=== PATIENT | female | born 1995 | race Caucasian/White ===

== ENCOUNTER 2017-04-01 00:40 | Emergency (ER) | payer OTHER ==
[2017-04-01 00:57] VITALS: RESP 18
--- NOTE | 2017-04-01 01:08 | ED ---
Fall HPI - General Chief Complaint: Fall Stated Complaint: Fall/abd pain-18 wks pg Time Seen by Provider: 04/01/17 01:00 Source: patient, RN notes reviewed Mode of arrival: ambulatory Limitations: no limitations - History of Present Illness Initial Comments: 21-year-old female presents emergency Department with chief complaint of fall. Patient states she fell down a flight of stairs. She states she does not exactly know how on the stairs. She states she is here because she is worried about the baby. She has not felt the baby move in one hour. Patient is A0 currently 18 weeks and 4 days with her LABORATORY ANALYST Dr. Olivier. Patient denies any vaginal bleeding or vaginal discharge. She states she's having some mild cramping. She complains of mild back pain with denies any head injury no LOC. Patient denies any extremity injury denies any difficulty ambulating denies any confusion, nausea vomiting. - Related Data Home Medications Medication Instructions Recorded Confirmed Pnv,Calcium 72/Iron/Folic Acid 1 tab PO DAILY 04/01/17 04/01/17 [ Plus Tablet] Allergies Allergy/AdvReac Type Severity Reaction Status Date / Time No Known Allergies Allergy Verified 04/11/16 20:27 Review of Systems ROS Statement: Those systems with pertinent positive or pertinent negative responses have been documented in the HPI. ROS Other: All systems not noted in ROS Statement are negative. Past Medical History Past Medical History: No Reported History Additional Past Medical History / Comment(s): Subjective history: In 2009 she had a normal vaginal delivery 8 lbs. 12 oz. This is her second . She' s had good care with me since 9 weeks gestation. Blood type is O+, antibodies negative, rubella immune, RPR nonreactive, hepatitis B negative, HIV nonreactive, toxoplasmosis negative. GBS positive. History of Any Multi-Drug Resistant Organisms: None Reported Past Surgical History: No Surgical Hx Reported Past Anesthesia/Blood Transfusion Reactions: No Reported Reaction Past Psychological History: Depression Smoking Status: Heavy tobacco smoker Past Alcohol Use History: None Reported Past Drug Use History: None Reported - Past Family History Mother Family Medical History: No Reported History General Exam Limitations: no limitations General appearance: alert, in no apparent distress Head exam: Present: atraumatic, normocephalic, normal inspection Eye exam: Present: normal appearance, PERRL, EOMI. Absent: scleral icterus, conjunctival injection, periorbital swelling ENT exam: Present: normal exam, normal oropharynx, mucous membranes moist Neck exam: Present: normal inspection, full ROM. Absent: tenderness, meningismus, lymphadenopathy Respiratory exam: Present: normal lung sounds bilaterally. Absent: respiratory distress, wheezes, rales, rhonchi, stridor Cardiovascular Exam: Present: regular rate, normal rhythm, normal heart sounds. Absent: systolic murmur, diastolic murmur, rubs, gallop, clicks GI/Abdominal exam: Present: soft, normal bowel sounds. Absent: distended, tenderness, guarding, rebound, rigid Extremities exam: Present: normal inspection, full ROM, normal capillary refill. Absent: tenderness, pedal edema, joint swelling, calf tenderness Back exam: Present: full ROM, tenderness (Mild tenderness of the lower thoracic and lumbar region), paraspinal tenderness, vertebral tenderness Neurological exam: Present: alert, oriented X3, CN II-XII intact, reflexes normal. Absent: motor sensory deficit Course Vital Signs 04/01/17 00:53 Temperature 98.0 F Pulse Rate 83 Respiratory 18 Rate Blood Pressure 120/63 O2 Sat by Pulse 100 Oximetry Medical Decision Making - Medical Decision Making 21-year-old female presented for fall downstairs concern for no movement. Patient is advised that she has some tenderness over thoracic or lumbar spine that she does need x-rays the patient is refusing them at this time because it would expose the baby to radiation. Patient understands risk of not having his x-rays. Patient has no head or neck injuries noted has no tenderness. Labor and delivery did come down and do heart tones which were within normal limits. Patient again told her that she has not having any vaginal bleeding or vaginal discharge. Patient abdomen is essentially nontender there is no tenderness in the upper half over the lower half. Patient told nurse that she is not concerning more after hearing feel heart tones. Patient again refused x- rays. Disposition Clinical Impression: Fall Disposition: HOME SELF-CARE Condition: Stable Instructions: Fall Prevention (ED) Additional Instructions: Please return to the Emergency Department if symptoms worsen or any other concerns. Referrals: Pedro Queen DO [Primary Care Provider] - 1-2 days Time of Disposition: 01:47
[2017-04-01 02:07] VITALS: BP 114/57; PULSE 72; TEMP 98.3
== END 2017-04-01 02:06 | disposition home or self-care (01) ==
LOC: EC 00:40
DX: O99.89 Other specified diseases and conditions complicating pregnancy, childbirth and the puerperium (principal); F17.200 Nicotine dependence, unspecified, uncomplicated; R10.9 Unspecified abdominal pain; Z79.899 Other long term (current) drug therapy; Z3A.18 18 weeks gestation of pregnancy; W10.9XXA Fall (on) (from) unspecified stairs and steps, initial encounter
CPT/HCPCS: 99283

== ENCOUNTER 2017-08-23 05:55 | Inpatient (IN) | payer BC, OTHER ==
[2017-08-23] MEDS ORDERED: TERBUTALINE 1 MG/ML VIAL SQ PRN (06:10)
[2017-08-23] MEDS ORDERED: CARBOPROST TROMETHAMINE 250 MCG/ML 1 ML AMP IM PRN (06:10)
[2017-08-23] MEDS ORDERED: OXYTOCIN 10 UNIT/ML 1 ML VIAL IM PRN (06:10)
[2017-08-23] MEDS: LACTATED RINGERS 1,000 ML IV SCH ×3 (06:10→14:14)
[2017-08-23] MEDS ORDERED: LIDOCAINE 1% (PF) 10 MG/ML (30 ML SDV) SQ PRN (06:10)
[2017-08-23] MEDS ORDERED: METHYLERGONOVINE 0.2 MG/ML 1 ML AMP IM PRN (06:10)
[2017-08-23 06:14] VITALS: BMI 41.8
[2017-08-23] MEDS ORDERED: OXYTOCIN 20 UNITS/1000 ML NS 1,000 ML IV SCH ×2 (06:15→16:15)
[2017-08-23 06:23] LABS: Basophils % (A) 0 %; Eosinophils # (A) 0.1 k/uL (0-0.7); Eosinophils % (A) 1 %; HCT 37.1 % (34.0-46.0); HGB 12.5 gm/dL (11.4-16.0); Lymphocytes # (A) 2.2 k/uL (1.0-4.8); Lymphocytes % (A) 21 %; MCHC 33.7 g/dL (31.0-37.0); Mean Platelet Volume 8.7; Monocytes # (A) 0.5 k/uL (0-1.0); Monocytes % (A) 5 %; Neutrophils # (A) 7.6 k/uL (1.3-7.7); Neutrophils % (A) 71 %; Platelet Count 181 k/uL (150-450); RBC 4.32 m/uL (3.80-5.40); RDW 15.1 % (11.5-15.5); WBC 10.7 k/uL (3.8-10.6)
[2017-08-23] MEDS ORDERED: SODIUM CHLORIDE 0.9% 100 ML BAG ONE (13:55)
[2017-08-23] MEDS ORDERED: BUPIVACAINE (PF) 0.25% 30 ML VIAL ONE (13:55)
[2017-08-23] MEDS ORDERED: fentaNYL (PF) 50 MCG/ML 5 ML AMP ONE (13:55)
--- NOTE | 2017-08-23 16:05 | P.HPOB ---
History of Present Illness H&P Date: 08/23/17 Chief Complaint: IUP @ 39 0/7 weeks This is a 22-year-old 3 para 2001 at 39-0/7 weeks that presents to labor and delivery for elective induction of labor. She denies concerns at this time. She notes good movement and denies contractions, loss of fluid , vaginal bleeding. On blood work her blood type is O+, rubella immune, hepatitis B surface antigen negative, GBS negative, HIV negative, RPR nonreactive. Review of Systems Constitutional: Denies chills, Denies fever Genitourinary: Reports Past Medical History Past Medical History: No Reported History Additional Past Medical History / Comment(s): Subjective history: In 2009 she had a normal vaginal delivery 8 lbs. 12 oz. This is her second . She' s had good care with me since 9 weeks gestation. Blood type is O+, antibodies negative, rubella immune, RPR nonreactive, hepatitis B negative, HIV nonreactive, toxoplasmosis negative. GBS positive. History of Any Multi-Drug Resistant Organisms: None Reported Past Surgical History: No Surgical Hx Reported Past Anesthesia/Blood Transfusion Reactions: No Reported Reaction Past Psychological History: Depression Smoking Status: Heavy tobacco smoker Past Alcohol Use History: None Reported Past Drug Use History: None Reported - Past Family History Mother Family Medical History: No Reported History Medications and Allergies Home Medications Medication Instructions Recorded Confirmed Type Pnv,Calcium 72/Iron/Folic Acid 1 tab PO DAILY 04/01/17 08/23/17 History [ Plus Tablet] Allergies Allergy/AdvReac Type Severity Reaction Status Date / Time No Known Allergies Allergy Verified 04/11/16 20:27 Exam Osteopathic Statement: *. No significant issues noted on an osteopathic structural exam other than those noted in the History and Physical/Consult. - Vital Signs Vital signs: Vital Signs Temp Pulse Resp BP Pulse Ox 08/23/17 06:11 97.7 F 110 H 16 118/80 97 Intake and Output 08/23/17 08/23/17 08/23/17 06:59 14:59 22:59 Other: Weight 124.738 kg - OBG Physical Exam Abdomen: Gravid Vulva: both: normal Cervix: 2 cm dilated, 50% effaced, -3 station, soft and lateral Uterus: enlarged Results Result Diagrams: 08/23/17 06:15 Abnormal Lab Results - Last 24 Hours (Table) 08/23/17 Range/Units 06:15 WBC 10.7 H (3.8-10.6) k/uL Assessment and Plan (1) Term Narrative/Plan: Will admit to labor and delivery for Pitocin induction of labor. Anticipate and will order stadol, epidural should the pt request pain medication Current Visit: Yes Status: Acute Code(s): Z34.80 - ENCOUNTER FOR SUPRVSN OF NORMAL , UNSP TRIMESTER SNOMED Code(s): 81478189 Time with Patient: Less than 30
[2017-08-23] MEDS ORDERED: diphenhydrAMINE 50 MG/ML 1 ML VIAL IVP PRN ×2 (16:08)
[2017-08-23] MEDS ORDERED: HYDROCORTISONE 2.5% RECTAL CREAM 30 GM TUBE RECTAL PRN (16:08)
[2017-08-23] MEDS ORDERED: ZOLPIDEM 5 MG TAB PO PRN (16:08)
[2017-08-23] MEDS ORDERED: SIMETHICONE 80 MG CHEWABLE PO PRN (16:08)
[2017-08-23] MEDS ORDERED: BENZOCAINE/MENTHOL SPRAY 1 GM/SPRAY AEROSOL TOPICAL PRN (16:08)
[2017-08-23] MEDS ORDERED: diphenhydrAMINE 50 MG CAP PO PRN (16:08)
[2017-08-23] MEDS ORDERED: diphenhydrAMINE 25 MG CAP PO PRN (16:08)
[2017-08-23] MEDS ORDERED: WITCH HAZEL 1 EACH MED..PAD TOPICAL PRN (16:08)
[2017-08-23] MEDS ORDERED: ACETAMINOPHEN TAB 325 MG TAB PO PRN (16:08)
[2017-08-23] MEDS ORDERED: Acetaminophen-Codeine 300-30mg TAB PO PRN ×2 (16:08)
[2017-08-23] MEDS ORDERED: LANOLIN CREAM 5 GM TUBE TOPICAL PRN (16:08)
--- NOTE | 2017-08-23 16:59 | P.PROBDLV ---
Vaginal Delivery Note - . Vaginal Delivery Note: This is a 22-year-old 3 para 2001 that presented earlier today for elective induction of labor. Patient was started on Pitocin per protocol, eventually having amniotomy performed with clear amniotic fluid noted. she eventually progressed to 5cm, received an epidural, she progressed to complete and began pushing and had a spontaneous vaginal delivery of a viable male . Patient was noted to be complete the head was delivered atraumatically the anterior shoulder was gently delivered followed by the posterior shoulder and the body, the was then placed gently on the patient's abdomen. The cord was then doubly clamped and cut. Patient's blood type was Rh+ therefore blood was unnecessary. Mouth and nares were suctioned clear fluid was noted. had a spontaneous cry at , time of 1547, weight 8 pounds 5.5 ounces, Apgars of 9-9 at one and 5 minutes respectively. Mother and infant tolerated delivery well
[2017-08-23] MEDS ORDERED: BUPIVACAINE (PF) 0.25% 25 ML, fentaNYL (PF) 200 MCG in SODIUM CHLORIDE 0.9% 71 ML EPIDURAL ONE (17:27)
[2017-08-23] MEDS: SENNOSIDES-DOCUSATE SODIUM 1 EACH TAB PO SCH (21:50)
[2017-08-24] MEDS: IBUPROFEN 600 MG TAB PO PRN ×2 (01:24→07:20)
--- NOTE | 2017-08-24 08:30 | P.DS ---
Providers Date of admission: 08/23/17 05:55 Expected date of discharge: 08/24/17 Attending physician: Jody Olivier Primary care physician: Stated None - Discharge Diagnosis(es) (1) Term Current Visit: Yes Status: Acute Hospital Course: This is a very pleasant 22-year-old 3 para 2001 at 39 0/7 weeks that presented to labor and delivery for elective induction of labor on 08/23/2017. Patient was admitted to labor and delivery and Pitocin induction of labor was begun. Patient progressed labor amniotomy was performed at approximately 2 cm clear fluid was obtained. Patient progressed to 5 cm electing to get an epidural at that time. Patient progressed to complete and had a spontaneous vaginal delivery of a viable male infant at 1547, weight of 8 pounds 5.5 ounces , Apgars of 9 and 9 at 1 and 5 minute respectively. Patient's course has been uneventful. On day #1 she is ambulating and voiding without difficulty, lochia is moderate, she is bottle feeding. She states her pain is well controlled with oral medication we are giving her i.e. Motrin. She does wish discharge home today. Patient Condition at Discharge: Good Plan - Discharge Summary New Discharge Prescriptions: No Action Pnv,Calcium 72/Iron/Folic Acid [ Plus Tablet] 1 tab PO DAILY Discharge Medication List Pnv,Calcium 72/Iron/Folic Acid [ Plus Tablet] 1 tab PO DAILY 04/01/17 [ History] Follow up Appointment(s)/Referral(s): Jody Olivier DO [Doctor of Osteopathic Medicine] - 4 Weeks Discharge Disposition: HOME SELF-CARE
[2017-08-24 08:46] VITALS: RESP 18; TEMP 98.1
[2017-08-24] MEDS: SENNOSIDES-DOCUSATE SODIUM 1 EACH TAB PO SCH (08:46)
[2017-08-24] MEDS ORDERED: NON-FORMULARY DRUG (Pnv,Calcium 72/Iron/Folic Acid [Prenatal Plus Tablet] 1 TAB) PO SCH (09:00)
[2017-08-24 17:49] VITALS: BP 137/72; PULSE 70
== END 2017-08-24 18:24 | disposition home or self-care (01) | DRG 775 ==
LOC: 4FBP 05:55
PROVIDERS: ADMIT Obstetrics & Gynecology Obstetrics; ATTEND Obstetrics & Gynecology Obstetrics
PROC: 10907ZC Drainage of Amniotic Fluid, Therapeutic from Products of Conception, Via Natural or Artificial Opening (ICD-10-PCS; principal; 2017-08-23)
PROC: 3E0R3BZ Introduction of Anesthetic Agent into Spinal Canal, Percutaneous Approach (ICD-10-PCS; principal; 2017-08-23)
PROC: 10E0XZZ Delivery of Products of Conception, External Approach (ICD-10-PCS; principal; 2017-08-23)
PROC: 00HU33Z Insertion of Infusion Device into Spinal Canal, Percutaneous Approach (ICD-10-PCS; principal; 2017-08-23)
PROC: 3E033VJ Introduction of Other Hormone into Peripheral Vein, Percutaneous Approach (ICD-10-PCS; principal; 2017-08-23)
DX: O99.824 Streptococcus B carrier state complicating childbirth (principal); F17.200 Nicotine dependence, unspecified, uncomplicated; Z37.0 Single live birth; O99.334 Smoking (tobacco) complicating childbirth; Z3A.39 39 weeks gestation of pregnancy
CPT/HCPCS: 85025; 88307

== ENCOUNTER 2018-07-24 23:30 | Emergency (ER) | payer BC, OTHER ==
[2018-07-24 23:36] VITALS: BP 110/73; PULSE 66; RESP 18; TEMP 98.5
[2018-07-24] MEDS ORDERED: MOXIFLOXACIN HCL 0.5% DROPS 3 ML BTL LEFT EYE STA (23:59)
--- NOTE | 2018-07-25 | ED ---
Eye Problem HPI - General Source: patient, RN notes reviewed, old records reviewed Mode of arrival: ambulatory Limitations: no limitations <Renetta Jones - Last Filed: 07/25/18 17:45> <Echo Kaplan - Last Filed: 07/27/18 04:22> - General Chief complaint: Eye Problems Stated complaint: Poss pink eye Time Seen by Provider: 07/24/18 23:38 - History of Present Illness Initial comments: Patient is a 23-year-old female, presents emergency department today with chief complaint of left eye irritation. Patient reports that her stepdaughter was at her house this weekend and has been diagnosed with pink eye. 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 She has not no if she has anything within her eye or actual bacterial gingivitis to cause her pain. Patient reports that she is out of her glasses or contacts. She denies any other complaints. (Renetta Jones) - Related Data Home Medications Medication Instructions Recorded Confirmed Pnv,Calcium 72/Iron/Folic Acid 1 tab PO DAILY 04/01/17 07/24/18 [ Plus Tablet] Previous Rx's Medication Instructions Recorded Moxifloxacin [Vigamox 0.3%] 1 drop LEFT EYE Q4H #1 bottle 07/25/18 Allergies Allergy/AdvReac Type Severity Reaction Status Date / Time No Known Allergies Allergy Verified 07/24/18 23:40 Review of Systems ROS Other: All systems not noted in ROS Statement are negative. <Renetta Jones - Last Filed: 07/25/18 17:45> ROS Other: All systems not noted in ROS Statement are negative. <Echo Kaplan - Last Filed: 07/27/18 04:22> ROS Statement: Those systems with pertinent positive or pertinent negative responses have been documented in the HPI. Past Medical History Past Medical History: No Reported History Additional Past Medical History / Comment(s): Subjective history: In 2009 she had a normal vaginal delivery 8 lbs. 12 oz. This is her second . She' s had good care with me since 9 weeks gestation. Blood type is O+, antibodies negative, rubella immune, RPR nonreactive, hepatitis B negative, HIV nonreactive, toxoplasmosis negative. GBS positive. History of Any Multi-Drug Resistant Organisms: None Reported Past Surgical History: No Surgical Hx Reported Past Anesthesia/Blood Transfusion Reactions: No Reported Reaction Past Psychological History: Depression Smoking Status: Current every day smoker Past Alcohol Use History: None Reported Past Drug Use History: None Reported - Past Family History Mother Family Medical History: No Reported History <Renetta Jones - Last Filed: 07/25/18 17:45> General Exam Limitations: no limitations General appearance: alert, in no apparent distress Head exam: Present: atraumatic, normocephalic, normal inspection Eye exam: Present: normal appearance, PERRL, EOMI, conjunctival injection (Left eye conjunctival injection. No significant drainage at this time.), periorbital swelling, other (No evidence retained foreign body.). Absent: scleral icterus ENT exam: Present: normal exam, mucous membranes moist Neck exam: Present: normal inspection. Absent: tenderness, meningismus, lymphadenopathy Respiratory exam: Present: normal lung sounds bilaterally. Absent: respiratory distress, wheezes, rales, rhonchi, stridor Cardiovascular Exam: Present: regular rate, normal rhythm, normal heart sounds. Absent: systolic murmur, diastolic murmur, rubs, gallop, clicks GI/Abdominal exam: Present: soft, normal bowel sounds. Absent: distended, tenderness, guarding, rebound, rigid Extremities exam: Present: normal inspection, full ROM, normal capillary refill. Absent: tenderness, pedal edema, joint swelling, calf tenderness Back exam: Present: normal inspection <Renetta Jones - Last Filed: 07/25/18 17:45> <Echo Kaplan P - Last Filed: 07/27/18 04:22> - General Exam Comments Initial Comments: 23-year-old female. Alert and oriented. Patient appears in no significant distress. (Renetta Jones) Vital Signs 07/24/18 23:33 Temperature 98.5 F Pulse Rate 66 Respiratory 18 Rate Blood Pressure 110/73 O2 Sat by Pulse 99 Oximetry Medical Decision Making <Renetta Jones - Last Filed: 07/25/18 17:45> <Echo Kaplan P - Last Filed: 07/27/18 04:22> - Medical Decision Making This Patient is a 23-year-old female, presents return today with left eye irritation times one day. Daughter was recently diagnosed with conjunctivitis. She also is concerned she may have a piece of foreign body within the eye due to working factory. At this time foreseen eye exam was performed. There is just diffuse uptake. No evidence of corneal abrasion or retained foreign body. Patient has no pain with extraocular movements. She does have some minor swelling around the periorbital area. No erythema. Low suspicion for periorbital cellulitis. Patient does report significant drainage from the left eye. We'll treat the Patient was sent for conjunctivitis. Discussed it could be possibly viral. I discussed that she should follow-up with ophthalmology. Patient agrees to treatment plan will comply. (Renetta Jones) I was available for consultation in the emergency department. The history and physical exam were done by the midlevel provider. I was consulted for this patient's care. I reviewed the case with the midlevel provider and based on their presentation of the patient, I agree with the assessment, medical decision making and plan of care as documented. Chart was dictated using [employer] dictation software. Attempts were made to correct any dictation errors however some typographical errors may persist. ( Echo Kaplan) Disposition Is patient prescribed a controlled substance at d/c from ED?: No <Renetta Jones - Last Filed: 07/25/18 17:45> <Echo Kaplan - Last Filed: 07/27/18 04:22> Clinical Impression: Conjunctivitis, left eye Disposition: HOME SELF-CARE Condition: Good Instructions: Conjunctivitis (ED) Additional Instructions: She can apply the eye ointment drops 1-2 drops every 4 hours the next 2 days. Follow up with ophthalmology if symptoms persist. Or return to emergency department if any alarming signs or symptoms occur. Prescriptions: Moxifloxacin [Vigamox 0.3%] 1 drop LEFT EYE Q4H #1 bottle Referrals: Pedro Queen DO [Primary Care Provider] - 1-2 days
== END 2018-07-25 00:25 | disposition home or self-care (01) ==
LOC: EC 23:30
DX: H10.9 Unspecified conjunctivitis (principal); F17.200 Nicotine dependence, unspecified, uncomplicated
CPT/HCPCS: 99283

== ENCOUNTER 2018-12-12 23:43 | Emergency (ER) | payer BC, OTHER ==
[2018-12-12 23:50] VITALS: BP 112/70; PULSE 85; RESP 18; TEMP 98.6
--- NOTE | 2018-12-13 01:09 | ED ---
General Adult HPI - General Chief complaint: Extremity Injury, Upper Stated complaint: nail infection Time Seen by Provider: 12/12/18 23:52 Source: patient, RN notes reviewed Mode of arrival: ambulatory Limitations: no limitations - History of Present Illness Initial comments: 23-year-old female presents to the emergency department for a chief complaint of painful left index finger. States that she got her nails done 2 weeks ago and since then it has been red and swollen. States that she decided to get it looked at today. Denies any spreading or streaking redness up the finger. Denies any pain with bending the finger. States she feels pressure under her nail. Denies fevers or chills.Patient has no other complaints at this time including shortness of breath, chest pain, abdominal pain, nausea or vomiting, headache, or visual changes. - Related Data Home Medications Medication Instructions Recorded Confirmed Pnv,Calcium 72/Iron/Folic Acid 1 tab PO DAILY 04/01/17 07/24/18 [ Plus Tablet] Previous Rx's Medication Instructions Recorded Moxifloxacin [Vigamox 0.3%] 1 drop LEFT EYE Q4H #1 bottle 07/25/18 Allergies Allergy/AdvReac Type Severity Reaction Status Date / Time No Known Allergies Allergy Verified 07/24/18 23:40 Review of Systems ROS Statement: Those systems with pertinent positive or pertinent negative responses have been documented in the HPI. ROS Other: All systems not noted in ROS Statement are negative. Past Medical History Past Medical History: No Reported History Additional Past Medical History / Comment(s): Subjective history: In 2009 she had a normal vaginal delivery 8 lbs. 12 oz. This is her second . She's had good care with me since 9 weeks gestation. Blood type is O+, antibodies negative, rubella immune, RPR nonreactive, hepatitis B negative, HIV nonreactive, toxoplasmosis negative. GBS positive. History of Any Multi-Drug Resistant Organisms: None Reported Past Surgical History: No Surgical Hx Reported Past Anesthesia/Blood Transfusion Reactions: No Reported Reaction Past Psychological History: Depression Smoking Status: Current every day smoker Past Alcohol Use History: None Reported Past Drug Use History: None Reported - Past Family History Mother Family Medical History: No Reported History General Exam Limitations: no limitations General appearance: alert, in no apparent distress Head exam: Present: atraumatic, normocephalic, normal inspection Eye exam: Present: normal appearance, PERRL, EOMI. Absent: scleral icterus, conjunctival injection, periorbital swelling ENT exam: Present: normal exam, mucous membranes moist Neck exam: Present: normal inspection, full ROM. Absent: tenderness, meningismus, lymphadenopathy Respiratory exam: Present: normal lung sounds bilaterally. Absent: respiratory distress, wheezes, rales, rhonchi, stridor Cardiovascular Exam: Present: regular rate, normal rhythm, normal heart sounds. Absent: systolic murmur, diastolic murmur, rubs, gallop, clicks Extremities exam: Present: full ROM (Full range motion of the left index finger), tenderness (Tenderness noted to the proximal nail bed of the left second finger with mild erythema, no significant fluctuance.), normal capillary refill (Capillary refill less than 2 seconds, radial pulse 2+ in the left upper extremity.), other (Patient does have what appears to be pus noted under the proximal nailbed as well.). Absent: pedal edema, joint swelling, calf tenderness Neurological exam: Present: alert, oriented X3, CN II-XII intact Psychiatric exam: Present: normal affect, normal mood Course Vital Signs 12/12/18 23:47 Temperature 98.6 F Pulse Rate 85 Respiratory 18 Rate Blood Pressure 112/70 O2 Sat by Pulse 98 Oximetry Procedures - Incision & Drainage Consent Obtained: verbal consent Site: other (Left second digit) Size (cm): 1 Scalpel Used: #11 (18-gauge needle used, followed by cautery tool) I&D Drainage Obtained: Pus Patient Tolerated Procedure: well, no complications Medical Decision Making - Medical Decision Making 23-year-old female currently presents to the emergency department for a chief complaint of left index finger pain 2 weeks after getting her nails done. On exam patient has pus under the proximal nail bed. Erythema noted to the proximal nail fold as well. No significant fluctuance. I did clean the area with alcohol. I then attempted to incise and drain the proximal nail fold with an 18-gauge needle, no pus was drained. I then used a cautery tool to trephinate the left second nail. This did allow pus to be expelled. Patient states pressure is much better at this time. As patient is antibiotics are not recommended as I was able to drain the abscess. However I did discuss warm soaks as well as following up with primary care. Discussed returning here if symptoms are not resolving Disposition Clinical Impression: Paronychia of finger of left hand Disposition: HOME SELF-CARE Condition: Good Instructions (If sedation given, give patient instructions): Paronychia (ED), Warm Compress or Soak (ED) Additional Instructions: Please do warm soaks at least 2 times daily. Please monitor for worsening symptoms as spreading or streaking redness and return if his occur. Follow-up with primary care in 1-2 days otherwise. Is patient prescribed a controlled substance at d/c from ED?: No Referrals: Pedro Queen DO [Primary Care Provider] - 1-2 days Time of Disposition: 01:08
== END 2018-12-13 01:33 | disposition home or self-care (01) ==
LOC: EC 12-13 00:16
DX: L03.012 Cellulitis of left finger (principal); F17.200 Nicotine dependence, unspecified, uncomplicated
CPT/HCPCS: 10060; 99283

== ENCOUNTER 2019-07-15 05:58 | Inpatient (IN) | payer BC, OTHER ==
[2019-07-15] MEDS ORDERED: CARBOPROST TROMETHAMINE 250 MCG/ML 1 ML AMP IM PRN (06:16)
[2019-07-15] MEDS ORDERED: OXYTOCIN 10 UNIT/ML 1 ML VIAL IM PRN (06:16)
[2019-07-15] MEDS ORDERED: LIDOCAINE 0.5% (PF) 5 MG/ML (50 ML SDV) SQ PRN (06:16)
[2019-07-15] MEDS ORDERED: TERBUTALINE 1 MG/ML VIAL SQ PRN (06:16)
[2019-07-15] MEDS ORDERED: METHYLERGONOVINE 0.2 MG/ML 1 ML AMP IM PRN (06:16)
[2019-07-15] MEDS: LACTATED RINGERS 1,000 ML IV SCH ×4 (06:29→15:43)
[2019-07-15] MEDS ORDERED: OXYTOCIN 30 UNITS/500 ML NS 30 UNIT in SALINE 1 500ML.BAG IV SCH (06:30)
[2019-07-15 06:45] LABS: Basophils % (A) 0 %; Eosinophils # (A) 0.1 k/uL (0-0.7); Eosinophils % (A) 1 %; HCT 35.4 % (34.0-46.0); HGB 12.2 gm/dL (11.4-16.0); Lymphocytes # (A) 2.4 k/uL (1.0-4.8); Lymphocytes % (A) 23 %; MCH 29.2 pg (25.0-35.0); MCHC 34.4 g/dL (31.0-37.0); MCV 84.9 fL (80.0-100.0); Mean Platelet Volume 8.5; Monocytes # (A) 0.6 k/uL (0-1.0); Monocytes % (A) 5 %; Neutrophils # (A) 7.1 k/uL (1.3-7.7); Neutrophils % (A) 69 %; Platelet Count 216 k/uL (150-450); RBC 4.17 m/uL (3.80-5.40); RDW 14.1 % (11.5-15.5); WBC 10.4 k/uL (3.8-10.6)
--- NOTE | 2019-07-15 08:16 | P.HPOB ---
History of Present Illness H&P Date: 07/15/19 Chief Complaint: IUP at 39 and 0/7 weeks This is a pleasant 24-year-old 4 para 3003 at 39-0/7 weeks that presents to labor and delivery for elective induction of labor. Patient has been receiving routine care with myself and it has been essentially uncompli cated. This morning patient notes good movement she denies contractions vaginal bleeding or loss of fluid. Next On blood work she has a blood type of O+, rubella immune, RPR nonreac tive, hepatitis B surface antigen negative, HIV negative, group beta strep negative. Review of Systems Constitutional: Denies chills, Denies fatigue, Denies fever Ears, nose, mouth and throat: Denies headache Cardiovascular: Reports leg edema Respiratory: Denies dyspnea Gastrointestinal: Denies constipation, Denies diarrhea, Denies nausea, Denies vomiting Genitourinary: Reports Past Medical History Past Medical History: No Reported History Additional Past Medical History / Comment(s): Subjective history: In 2009 she had a normal vaginal delivery 8 lbs. 12 oz. This is her second . She's had good care with me since 9 weeks gestation. Blood type is O+, antibodies negative, rubella immune, RPR nonreactive, hepatitis B negative, HIV nonreactive, toxoplasmosis negative. GBS positive. History of Any Multi-Drug Resistant Organisms: None Reported Past Surgical History: No Surgical Hx Reported Past Anesthesia/Blood Transfusion Reactions: No Reported Reaction Past Psychological History: No Psychological Hx Reported, Depression Smoking Status: Current every day smoker Past Alcohol Use History: None Reported Past Drug Use History: None Reported - Past Family History Mother Family Medical History: No Reported History Medications and Allergies Home Medications Medication Instructions Recorded Confirmed Type Pnv,Calcium 72/Iron/Folic Acid 1 tab PO DAILY 04/01/17 07/15/19 History [ Plus Tablet] Allergies Allergy/AdvReac Type Severity Reaction Status Date / Time Penicillins Allergy Rash/Hives Verified 07/15/19 06:13 Exam Osteopathic Statement: *. No significant issues noted on an osteopathic structural exam other than those noted in the History and Physical/Consult. Vital Signs Temp Pulse Resp BP 07/15/19 07:14 98.2 F 74 18 122/69 Intake and Output 07/14/19 07/15/19 07/15/19 22:59 06:59 14:59 Other: Weight 117.934 kg 117.934 kg Targeted physical exam is performed in general this is a well-nourished well- developed female in no acute distress, breathing is noted to nonlabored her heart has regular rate and rhythm, abdomen is gravid and appropriate for ges tational age, heart tones returned be category 1 and she is evelyn regularly. On cervical exam she is 4/50/-3 amniotomy is performed and clear fluid is obtained. Results Result Diagrams: 07/15/19 06:25 Assessment and Plan (1) Term Current Visit: No Status: Acute Code(s): Z34.80 - ENCOUNTER FOR SUPRVSN OF NORMAL , UNSP TRIMESTER SNOMED Code(s): 32021572 Plan: Patient is admitted to labor for Pitocin induction of labor. Pitocin induction is begun per hospital protocol, patient does desire epidural, anesthesia will be notified. Anticipate spontaneous vaginal delivery later today.
[2019-07-15] MEDS ORDERED: ROPIVACAINE 5MG/ML 20ML VIAL ONE (10:26)
[2019-07-15] MEDS ORDERED: fentaNYL (PF) 50 MCG/ML 5 ML AMP ONE (10:26)
[2019-07-15] MEDS ORDERED: SODIUM CHLORIDE 0.9% 100 ML BAG ONE (10:26)
[2019-07-15] MEDS ORDERED: diphenhydrAMINE 50 MG CAP PO PRN (11:31)
[2019-07-15] MEDS ORDERED: HYDROcodone/APAP 5-325MG 1 EACH TAB PO PRN (11:31)
[2019-07-15] MEDS ORDERED: LANOLIN CREAM 5 GM TUBE TOPICAL PRN (11:31)
[2019-07-15] MEDS ORDERED: WITCH HAZEL 1 EACH MED..PAD TOPICAL PRN (11:31)
[2019-07-15] MEDS ORDERED: ZOLPIDEM 5 MG TAB PO PRN (11:31)
[2019-07-15] MEDS ORDERED: SIMETHICONE 80 MG CHEWABLE PO PRN (11:31)
[2019-07-15] MEDS ORDERED: diphenhydrAMINE 50 MG/ML 1 ML VIAL IVP PRN ×2 (11:31)
[2019-07-15] MEDS ORDERED: BENZOCAINE/MENTHOL SPRAY 1 GM/SPRAY AEROSOL TOPICAL PRN (11:31)
[2019-07-15] MEDS ORDERED: HYDROCORTISONE 2.5% RECTAL CREAM 30 GM TUBE RECTAL PRN (11:31)
[2019-07-15] MEDS ORDERED: diphenhydrAMINE 25 MG CAP PO PRN (11:31)
--- NOTE | 2019-07-15 12:02 | P.PROBDLV ---
Vaginal Delivery Note - . Vaginal Delivery Note: This is a 24-year-old 4 para 3003 at 39-0/7 weeks that presented to labor and delivery for elective induction of labor. Patient was receiving routine care with myself and this has been uncomplicated. Patient was admitted to labor and delivery and Pitocin induction of labor was begun per hospital protocol. Patient did become uncomfortable requesting epidural placement which was placed by the anesthesia Department without difficulty. Patient progressed to complete began pushing and had a normal spontaneous vaginal delivery of a viable female at 1141 with a weight of 8 lbs. 2 oz. After a two-minute delay the interval cord was doubly clamped and cut and the placenta was delivered spontaneously intact with a three-vessel cord. On inspection the patient's vaginal vault a small first-degree laceration was noted at the posterior fourchette this was repaired in usual fashion with 3-0 repeat. The uterus was noted to be quite boggy therefore Methergine was given at this time. Uterus was noted be firm and below the umbilicus after administration. The bladder was emptied for approximately 150 mL of clear yellow urine prior to Methergine being given. EBL 400cc Patient and tolerated delivery well and are resting comfortably.
[2019-07-15] MEDS: OXYTOCIN 20 UNITS/1000 ML NS 1,000 ML IV SCH ×2 (12:16→14:02)
[2019-07-15] MEDS: IBUPROFEN 600 MG TAB PO PRN (15:51)
[2019-07-15] MEDS: SENNOSIDES-DOCUSATE SODIUM 1 EACH TAB PO SCH (20:35)
[2019-07-15] MEDS: ACETAMINOPHEN TAB 325 MG TAB PO PRN (20:35)
[2019-07-15] MEDS ORDERED: DIPH,PERTUS(ACELL)TETVAC-LF 0.5 ML VIAL IM ONE (21:02)
[2019-07-16] MEDS: IBUPROFEN 600 MG TAB PO PRN (04:06)
[2019-07-16 07:26] LABS: Basophils % (A) 0 %; Eosinophils # (A) 0.1 k/uL (0-0.7); Eosinophils % (A) 1 %; HCT 30.3 % (34.0-46.0); HGB 10.4 gm/dL (11.4-16.0); Lymphocytes # (A) 2.4 k/uL (1.0-4.8); Lymphocytes % (A) 26 %; MCH 29.5 pg (25.0-35.0); MCHC 34.3 g/dL (31.0-37.0); Mean Platelet Volume 7.8; Monocytes # (A) 0.4 k/uL (0-1.0); Monocytes % (A) 5 %; Neutrophils % (A) 66 %; Platelet Count 191 k/uL (150-450); RBC 3.52 m/uL (3.80-5.40); RDW 14.2 % (11.5-15.5); WBC 9.1 k/uL (3.8-10.6)
[2019-07-16] MEDS: SENNOSIDES-DOCUSATE SODIUM 1 EACH TAB PO SCH (08:30)
[2019-07-16] MEDS: ACETAMINOPHEN TAB 325 MG TAB PO PRN (08:30)
--- NOTE | 2019-07-16 08:43 | P.DS ---
Providers Date of admission: 07/15/19 05:58 Expected date of discharge: 07/16/19 Attending physician: Jody Olivier Primary care physician: Pedro Queen - Discharge Diagnosis(es) (1) Term Current Visit: No Status: Acute (2) Status post vaginal delivery Current Visit: Yes Status: Acute Hospital Course: This pleasant 24-year-old 4 para 3003 at 39-0/7 weeks presented to labor and delivery yesterday 07/15/19 for elective induction of labor. Patient had been receiving routine care that was uncomplicated. Patient was admitted Pitocin was started per hospital protocol. Patient underwent amniotomy clear fluid was obtained. Patient became uncomfortable requesting epidural placement. Epidural was placed without difficulty by the anesthesia department. She progressed to complete began pushing and had a normal spontaneous vaginal delivery of a viable female at 1141, weight of 8 lbs. 2 oz. Patient did sustain a hemorrhage, which resolved after 1 dose of Methergine. Hemoglobin noted to go from 12 on admission to 10. She did sustain a first- degree vaginal laceration that was repaired with a [id number] suture of 3-0 Rapide. Patient's course is uneventful. She is a really and voiding without difficulty on this day #1. She is tolerating a regular diet without nausea or vomiting. She states her pain is well-controlled. She would like discharge home at 24 hours. Patient Condition at Discharge: Good Plan - Discharge Summary New Discharge Prescriptions: No Action Pnv,Calcium 72/Iron/Folic Acid [ Plus Tablet] 1 tab PO DAILY Discharge Medication List Pnv,Calcium 72/Iron/Folic Acid [ Plus Tablet] 1 tab PO DAILY 04/01/17 [History] Follow up Appointment(s)/Referral(s): Jody Olivier DO [Doctor of Osteopathic Medicine] - 4 Weeks Patient Instructions/Handouts: Vaginal Delivery (DC), Vaginal Delivery (GEN) Activity/Diet/Wound Care/Special Instructions: No tub baths or intercourse until 6 weeks . Patient may use [id number] ibuprofen 600 mg every 6 hours for pain. Discharge Disposition: HOME SELF-CARE
[2019-07-16 13:40] VITALS: BP 128/58; PULSE 71; RESP 16; TEMP 98
== END 2019-07-16 13:00 | disposition home or self-care (01) | DRG 807 ==
LOC: 4FBP 05:58
PROVIDERS: ADMIT Obstetrics & Gynecology Obstetrics; ATTEND Obstetrics & Gynecology Obstetrics
PROC: 10E0XZZ Delivery of Products of Conception, External Approach (ICD-10-PCS; principal; 2019-07-15)
PROC: 3E033VJ Introduction of Other Hormone into Peripheral Vein, Percutaneous Approach (ICD-10-PCS; 2019-07-15)
PROC: 00HU33Z Insertion of Infusion Device into Spinal Canal, Percutaneous Approach (ICD-10-PCS; 2019-07-15)
PROC: 3E0R3BZ Introduction of Anesthetic Agent into Spinal Canal, Percutaneous Approach (ICD-10-PCS; 2019-07-15)
PROC: 0HQ9XZZ Repair Perineum Skin, External Approach (ICD-10-PCS; 2019-07-15)
DX: O99.824 Streptococcus B carrier state complicating childbirth (principal); Z37.0 Single live birth; O99.334 Smoking (tobacco) complicating childbirth; F17.200 Nicotine dependence, unspecified, uncomplicated; O71.4 Obstetric high vaginal laceration alone; O72.1 Other immediate postpartum hemorrhage; Z3A.39 39 weeks gestation of pregnancy; Z88.0 Allergy status to penicillin
CPT/HCPCS: 85025; 86850; 86900; 86901; 90471; 90715

== ENCOUNTER 2020-09-29 03:14 | Emergency (ER) | payer BC ==
[2020-09-29 03:22] VITALS: TEMP 97.7
[2020-09-29] MEDS ORDERED: SODIUM CHLORIDE 0.9% 500 ML 500 ML IV STA (04:09)
[2020-09-29 04:35] LABS: Basophils % (A) 0 %; Eosinophils # (A) 0.2 k/uL (0-0.7); Eosinophils % (A) 2 %; HCT 35.9 % (34.0-46.0); HGB 12.5 gm/dL (11.4-16.0); Lymphocytes # (A) 2.5 k/uL (1.0-4.8); Lymphocytes % (A) 25 %; MCH 29.1 pg (25.0-35.0); MCHC 34.9 g/dL (31.0-37.0); MCV 83.5 fL (80.0-100.0); Mean Platelet Volume 7.5; Monocytes # (A) 0.3 k/uL (0-1.0); Monocytes % (A) 3 %; Neutrophils # (A) 6.9 k/uL (1.3-7.7); Neutrophils % (A) 69 %; Platelet Count 197 k/uL (150-450); RDW 14.1 % (11.5-15.5)
--- NOTE | 2020-09-29 06:36 | ED ---
Female Urogenital HPI - General Chief complaint: Vaginal Bleeding Stated complaint: 17 wks preg, bleeding Time Seen by Provider: 09/29/20 03:33 Source: patient Mode of arrival: ambulatory Limitations: no limitations - History of Present Illness MD Complaint: vaginal bleeding, pelvic pain -: hour(s) Location: suprapubic, LLQ, RLQ Radiation: non-radiating Severity: moderate Quality: cramping Consistency: intermittent Improves with: none Worsens with: none Patient : Yes Number of weeks : 17 Associated Symptoms: vaginal bleeding, abdominal pain - Related Data Home Medications Medication Instructions Recorded Confirmed Pnv,Calcium 72/Iron/Folic Acid 1 tab PO DAILY 04/01/17 09/29/20 [ Plus Tablet] Amoxicillin 500 mg PO TID 09/29/20 09/29/20 Sertraline [Zoloft] 50 mg PO DAILY 09/29/20 09/29/20 Allergies Allergy/AdvReac Type Severity Reaction Status Date / Time Penicillins Allergy Rash/Hives Verified 09/29/20 07:56 Review of Systems ROS Statement: Those systems with pertinent positive or pertinent negative responses have been documented in the HPI. ROS Other: All systems not noted in ROS Statement are negative. Constitutional: Denies: fever, chills Respiratory: Denies: cough, dyspnea Cardiovascular: Denies: chest pain, palpitations, edema, syncope Gastrointestinal: Reports: as per HPI, abdominal pain. Denies: nausea, vomiting, diarrhea, constipation Genitourinary: Reports: other (Vaginal bleeding). Denies: dysuria, hematuria Musculoskeletal: Denies: back pain Skin: Denies: rash Neurological: Denies: headache, weakness, numbness Past Medical History Past Medical History: No Reported History Additional Past Medical History / Comment(s): Subjective history: In 2009 she had a normal vaginal delivery 8 lbs. 12 oz. This is her second . She's had good care with me since 9 weeks gestation. Blood type is O+, antibodies negative, rubella immune, RPR nonreactive, hepatitis B negative, HIV nonreactive, toxoplasmosis negative. GBS positive. History of Any Multi-Drug Resistant Organisms: None Reported Past Surgical History: No Surgical Hx Reported Past Anesthesia/Blood Transfusion Reactions: No Reported Reaction Past Psychological History: No Psychological Hx Reported, Depression Smoking Status: Current every day smoker Past Alcohol Use History: None Reported Past Drug Use History: None Reported - Past Family History Mother Family Medical History: No Reported History General Exam Limitations: no limitations General appearance: alert, in no apparent distress Head exam: Present: atraumatic, normocephalic Eye exam: Present: normal appearance. Absent: scleral icterus, conjunctival injection ENT exam: Present: normal oropharynx Neck exam: Present: normal inspection Respiratory exam: Present: normal lung sounds bilaterally. Absent: respiratory distress, wheezes, rales, rhonchi, stridor Cardiovascular Exam: Present: regular rate, normal rhythm, normal heart sounds. Absent: systolic murmur, diastolic murmur, rubs, gallop GI/Abdominal exam: Present: soft. Absent: distended, tenderness, guarding, rebound, rigid, mass Extremities exam: Present: normal inspection, normal capillary refill. Absent: pedal edema, calf tenderness Back exam: Present: normal inspection. Absent: CVA tenderness (R), CVA tenderness (L) Neurological exam: Present: alert Skin exam: Present: warm, dry, intact, normal color. Absent: rash Course Vital Signs 09/29/20 09/29/20 09/29/20 03:17 05:35 07:21 Temperature 97.7 F Pulse Rate 83 74 66 Respiratory 18 16 16 Rate Blood Pressure 116/78 111/64 106/66 O2 Sat by Pulse 100 97 95 Oximetry 09/29/20 08:06 Temperature Pulse Rate 72 Respiratory 18 Rate Blood Pressure 103/69 O2 Sat by Pulse 100 Oximetry Medical Decision Making - Medical Decision Making This patient is a 25-year-old woman with cramping and vaginal bleeding that had come on tonight. Her symptoms did resolve in the emergency department. 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 - Lab Data Result diagrams: 09/29/20 04:20 Lab Results 09/29/20 09/29/20 09/29/20 Range/Units 04:20 04:20 04:20 WBC 10.0 (3.8-10.6) k/uL RBC 4.30 (3.80-5.40) m/uL Hgb 12.5 (11.4-16.0) gm/dL Hct 35.9 (34.0-46.0) % MCV 83.5 (80.0-100.0) fL MCH 29.1 (25.0-35.0) pg MCHC 34.9 (31.0-37.0) g/dL RDW 14.1 (11.5-15.5) % Plt Count 197 (150-450) k/uL MPV 7.5 Neutrophils % 69 % Lymphocytes % 25 % Monocytes % 3 % Eosinophils % 2 % Basophils % 0 % Neutrophils # 6.9 (1.3-7.7) k/uL Lymphocytes # 2.5 (1.0-4.8) k/uL Monocytes # 0.3 (0-1.0) k/uL Eosinophils # 0.2 (0-0.7) k/uL Basophils # 0.0 (0-0.2) k/uL HCG, Quant 7742.9 mIU/mL Blood Type O Positive Blood Type Recheck O Pos Bld Type Recheck Status No Disposition Clinical Impression: Threatened Disposition: HOME SELF-CARE Condition: Good Instructions (If sedation given, give patient instructions): Threatened Miscarriage (ED) Is patient prescribed a controlled substance at d/c from ED?: No Referrals: Pedro Queen DO [Primary Care Provider] - 1-2 days Jody Olivier DO [Doctor of Osteopathic Medicine] - 1-2 days
--- NOTE | 2020-09-29 07:28 | US ---
EXAMINATION TYPE: US OB >= 14 wk fetus DATE OF EXAM: 09/29/2020 COMPARISON: None CLINICAL HISTORY: vaginal bleeding TECHNIQUE: Transabdominal (TA) GESTATIONAL AGE / DATING Physician Established: (17 weeks/3 days) EDC: 03/06/2021 Dates by Current Scan: (17 weeks/5 days) EDC: 03/04/2021 Beta HCG (if available): Not available at this time SURVEY IUP: Single PLACENTA: Anterior PREVIA: No Previa OZ: 13.0 cm Normal CERVICAL LENGTH (transabdominal: norm > 3.0cm): 4.0 cm BIOMETRY PRESENTATION: Vertex LIE: Longitudinal BPD: 3.8 cm 17 weeks / 4 days HC: 14.4 cm 17 weeks / 4 days AC: 12.5 cm 18 weeks / 1 days FL: 2.5 cm 17 weeks / 5 days ESTIMATED WEIGHT IN GRAMS: 213.5 grams ESTIMATED WEIGHT IN LBS/OZ: 0 lbs. 8 oz. WEIGHT PERCENTAGE BASED ON ESTABLISHED DATES: 73% HC/AC: 1.2 Normal FL/AC: 20.2 Normal HEART RATE: 143 bpm RHYTHM: Normal Viable IUP, measurements consistent with dates. Single live intrauterine gestation. No cervical thinning. No placenta previa. Calculated amniotic flu id index within normal limits. Abnormal cephalad presentation currently. biometry measurements congruent and thought within normal limits. IMPRESSION: As above.
[2020-09-29 08:07] VITALS: BP 103/69; PULSE 72; RESP 18
== END 2020-09-29 09:31 | disposition home or self-care (01) ==
LOC: EC 03:14
DX: O20.0 Threatened abortion (principal); O99.332 Smoking (tobacco) complicating pregnancy, second trimester; F17.200 Nicotine dependence, unspecified, uncomplicated; O99.342 Other mental disorders complicating pregnancy, second trimester; F32.9 Major depressive disorder, single episode, unspecified; Z3A.17 17 weeks gestation of pregnancy; Z88.0 Allergy status to penicillin
CPT/HCPCS: 36415; 76805; 84702; 85025; 86900; 86901; 99284

== ENCOUNTER 2021-02-15 06:00 | Inpatient (IN) | payer BC ==
[2021-02-15] MEDS ORDERED: OXYTOCIN 10 UNIT/ML 1 ML VIAL IM PRN (06:14)
[2021-02-15] MEDS ORDERED: LIDOCAINE 0.5% (PF) 5 MG/ML (50 ML SDV) SQ PRN (06:14)
[2021-02-15] MEDS ORDERED: TERBUTALINE 1 MG/ML VIAL SQ PRN (06:14)
[2021-02-15] MEDS ORDERED: CARBOPROST TROMETHAMINE 250 MCG/ML 1 ML AMP IM PRN (06:14)
[2021-02-15] MEDS ORDERED: METHYLERGONOVINE 0.2 MG/ML 1 ML AMP IM PRN (06:14)
[2021-02-15] MEDS ORDERED: OXYTOCIN 30 UNITS/500 ML NS 30 UNIT in SALINE 1 500ML.BAG IV SCH ×2 (06:15→13:45)
[2021-02-15] MEDS ORDERED: LACTATED RINGERS 1,000 ML IV SCH (06:15)
[2021-02-15] MEDS: LACTATED RINGERS 1,000 ML IV SCH ×3 (06:25→11:46)
[2021-02-15 06:28] LABS: Basophils % (A) 0 %; Eosinophils # (A) 0.1 k/uL (0-0.7); Eosinophils % (A) 1 %; HCT 35.2 % (34.0-46.0); HGB 12.3 gm/dL (11.4-16.0); Lymphocytes # (A) 2.6 k/uL (1.0-4.8); Lymphocytes % (A) 22 %; MCH 28.2 pg (25.0-35.0); MCHC 34.9 g/dL (31.0-37.0); MCV 80.7 fL (80.0-100.0); Mean Platelet Volume 8.1; Monocytes # (A) 0.6 k/uL (0-1.0); Monocytes % (A) 5 %; Neutrophils # (A) 8.5 k/uL (1.3-7.7); Neutrophils % (A) 71 %; Platelet Count 238 k/uL (150-450); RBC 4.36 m/uL (3.80-5.40); RDW 14.7 % (11.5-15.5); WBC 12.1 k/uL (3.8-10.6)
[2021-02-15] MEDS ORDERED: ROPIVACAINE 5MG/ML 20ML VIAL ONE (09:34)
[2021-02-15] MEDS ORDERED: SODIUM CHLORIDE 0.9% 100 ML BAG ONE (09:34)
[2021-02-15] MEDS ORDERED: fentaNYL (PF) 50 MCG/ML 5 ML AMP ONE (09:34)
[2021-02-15] MEDS ORDERED: miSOPROStoL 200 MCG TAB RECTAL STA (13:25)
[2021-02-15] MEDS ORDERED: diphenhydrAMINE 25 MG CAP PO PRN (13:31)
[2021-02-15] MEDS ORDERED: ZOLPIDEM 5 MG TAB PO PRN (13:31)
[2021-02-15] MEDS ORDERED: diphenhydrAMINE 50 MG/ML 1 ML VIAL IVP PRN ×2 (13:31)
[2021-02-15] MEDS ORDERED: SIMETHICONE 80 MG CHEWABLE PO PRN (13:31)
[2021-02-15] MEDS ORDERED: BENZOCAINE/MENTHOL SPRAY 1 GM/SPRAY AEROSOL TOPICAL PRN (13:31)
[2021-02-15] MEDS ORDERED: LANOLIN CREAM 5 GM TUBE TOPICAL PRN (13:31)
[2021-02-15] MEDS ORDERED: HYDROCORTISONE 2.5% RECTAL CREAM 30 GM TUBE RECTAL PRN (13:31)
[2021-02-15] MEDS ORDERED: diphenhydrAMINE 50 MG CAP PO PRN (13:31)
--- NOTE | 2021-02-15 13:33 | P.PROBDLV ---
Vaginal Delivery Note - . Vaginal Delivery Note: This is a 25-year-old 004 at 39-4/7 weeks that presented to labor and delivery for elective induction of labor. Patient was admitted and Pitocin induction of labor was begun. Patient progressed through labor eventually coming uncomfortable and requesting epidural placement. Patient quickly progressed to complete began pushing and had a normal spontaneous vaginal delivery of a viable female infant at 1301, weight of 7 lbs. 11 oz. and Apgars of 99 at one and 5 minutes respect weight. After two-minute delay the umbilical cords doubly clamped and cut and cord blood was taken. Patient did sustain a first 3 vaginal laceration during delivery. The placenta was delivered spontaneously intact with three-vessel cord being noted. Patient did have a moderate amount of lochia after delivery, Cytotec and Methergine were given. Uterus is noted to be firm and below the umbilicus, the bladder was drained for approximately 200 mL of clear yellow urine. The first 3 vaginal laceration was repaired with 3-0 Rapide in a [id number] fashion.All counts were noted to be correct 2. Patient and infant tolerated delivery well and are resting comfortably.
[2021-02-15] MEDS: IBUPROFEN 600 MG TAB PO SCH ×2 (14:01→20:00)
[2021-02-15] MEDS ORDERED: CLINDAMYCIN 900 MG in DEXTROSE 5% IN WATER 50 ML IVPB SCH ×2 (14:15)
--- NOTE | 2021-02-15 17:42 | P.HPOB ---
History of Present Illness H&P Date: 02/15/21 Chief Complaint: IUP at 39 and 4/sevenths weeks This 25-year-old 5 para 4004 at 39-4/7 weeks that presents to labor and delivery for elective induction of labor. Patient has been receiving routine care which has been essentially uncomplicated. Patient has known circumvallate placenta for which she has been doing weekly nonstress test. Patient notes good movement denies vaginal bleeding or loss of fluid. On bloodwork this patient is a blood type of O+, rubella status immune, RPR nonreactive, B surface antigen negative, group beta strep cultures negative. Review of Systems Constitutional: Denies chills, Denies fatigue, Denies fever Ears, nose, mouth and throat: Denies headache Cardiovascular: Reports leg edema Respiratory: Denies dyspnea Gastrointestinal: Denies constipation, Denies diarrhea, Denies nausea, Denies vomiting Genitourinary: Reports Past Medical History Past Medical History: No Reported History Additional Past Medical History / Comment(s): Subjective history: In 2009 she had a normal vaginal delivery 8 lbs. 12 oz. This is her second . She's had good care with me since 9 weeks gestation. Blood type is O+, antibodies negative, rubella immune, RPR nonreactive, hepatitis B negative, HIV nonreactive, toxoplasmosis negative. GBS positive. History of Any Multi-Drug Resistant Organisms: None Reported Past Surgical History: No Surgical Hx Reported Past Anesthesia/Blood Transfusion Reactions: No Reported Reaction Past Psychological History: No Psychological Hx Reported, Depression Smoking Status: Current every day smoker Past Alcohol Use History: None Reported Past Drug Use History: None Reported Additional Drug Use History / Comment(s): 5 cig/day - Past Family History Mother Family Medical History: No Reported History Medications and Allergies Home Medications Medication Instructions Recorded Confirmed Type Pnv,Calcium 72/Iron/Folic Acid 1 tab PO DAILY 04/01/17 02/15/21 History [ Plus Tablet] Sertraline [Zoloft] 50 mg PO DAILY 09/29/20 02/15/21 History Aspirin 1 tab PO ONCE 02/15/21 02/15/21 History Allergies Allergy/AdvReac Type Severity Reaction Status Date / Time Penicillins Allergy Rash/Hives Verified 09/29/20 07:56 Exam Osteopathic Statement: *. No significant issues noted on an osteopathic structural exam other than those noted in the History and Physical/Consult. 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 heart tones returned be category 1 and she is evelyn irregularly. On cervical exam she is 3/50/-2 station amniotomy is performed and clear fluid was obtained. Results Result Diagrams: 02/15/21 06:21 Abnormal Lab Results - Last 24 Hours (Table) 02/15/21 Range/Units 06:21 WBC 12.1 H (3.8-10.6) k/uL Neutrophils # 8.5 H (1.3-7.7) k/uL Assessment and Plan (1) Term Current Visit: No Status: Acute Code(s): Z34.80 - ENCOUNTER FOR SUPRVSN OF NORMAL , UNSP TRIMESTER SNOMED Code(s): 59333470 Plan: This 25-year-old 5 para 4004 at 39-4/7 weeks presents to labor and delivery for induction of labor. Patient is admitted and Pitocin induction of labor is begun per hospital protocol. Patient does elect epidural for pain management during the labor process. Interceed spontaneous vaginal delivery later today.
[2021-02-15] MEDS: SENNOSIDES-DOCUSATE SODIUM 1 EACH TAB PO SCH (20:00)
[2021-02-15] MEDS: SERTRALINE 50 MG TAB PO SCH (20:22)
[2021-02-15] MEDS: PRENATAL VIT-IRON-FOLIC ACID 1 EACH CAP PO SCH (20:22)
[2021-02-15] MEDS: ACETAMINOPHEN TAB 325 MG TAB PO PRN (23:36)
[2021-02-16] MEDS: IBUPROFEN 600 MG TAB PO SCH ×2 (01:57→09:13)
[2021-02-16 06:24] LABS: Basophils % (A) 0 %; Eosinophils # (A) 0.1 k/uL (0-0.7); Eosinophils % (A) 1 %; HCT 32.3 % (34.0-46.0); HGB 10.9 gm/dL (11.4-16.0); Lymphocytes # (A) 2.7 k/uL (1.0-4.8); Lymphocytes % (A) 26 %; MCHC 33.7 g/dL (31.0-37.0); Mean Platelet Volume 8.1; Monocytes # (A) 0.5 k/uL (0-1.0); Monocytes % (A) 5 %; Neutrophils # (A) 6.7 k/uL (1.3-7.7); Neutrophils % (A) 66 %; Platelet Count 193 k/uL (150-450); RDW 14.8 % (11.5-15.5); WBC 10.2 k/uL (3.8-10.6)
--- NOTE | 2021-02-16 07:55 | P.DS ---
Providers Date of admission: 02/15/21 06:00 Expected date of discharge: 02/16/21 Attending physician: Jody Olivier Primary care physician: Stated None - Discharge Diagnosis(es) (1) Term Current Visit: No Status: Acute (2) Status post vaginal delivery Current Visit: No Status: Acute Hospital Course: This is a 25-year-old 004 that presented to labor and delivery at 39-4/7 weeks for elective induction of labor. Patient had been receiving routine care with myself which is been essentially uncomplicated. For full details on this patient please see the dictated history and physical. Patient was admitted and Pitocin induction of labor was begun per hospital protocol. Patient underwent amniotomy clear fluid was noted. Patient progressed through labor eventually becoming uncomfortable and requesting epidural placement. Patient had epidural placed without difficulty by the anesthesia department. She progressed to complete began pushing and had a normal spontaneous vaginal delivery of a viable female infant at 1301, weight of 7 lbs. 11 oz. and Apgars of 9 and 9 at one and 5 minutes respectively. Patient does have a history of hemorrhage and moderate bleeding was noted after delivery therefore Cytotec and Methergine were given. Patient did well . She on this day #1 she is ambulating and voiding without difficulty. She is tolerating a regular diet without nausea or vomiting. She states she feels well and would like discharge home. Her bleeding sense delivery has been normal in nature. Patient Condition at Discharge: Good Plan - Discharge Summary New Discharge Prescriptions: No Action Pnv,Calcium 72/Iron/Folic Acid [ Plus Tablet] 1 tab PO DAILY Sertraline [Zoloft] 50 mg PO DAILY Aspirin 1 tab PO ONCE Discharge Medication List Pnv,Calcium 72/Iron/Folic Acid [ Plus Tablet] 1 tab PO DAILY 04/01/17 [History] Sertraline [Zoloft] 50 mg PO DAILY 09/29/20 [History] Aspirin 1 tab PO ONCE 02/15/21 [History] Follow up Appointment(s)/Referral(s): Jody Olivier DO [Doctor of Osteopathic Medicine] - 4 Weeks Patient Instructions/Handouts: Vaginal Delivery (DC), Vaginal Delivery (GEN) Discharge Disposition: HOME SELF-CARE
[2021-02-16] MEDS: SENNOSIDES-DOCUSATE SODIUM 1 EACH TAB PO SCH (09:12)
[2021-02-16] MEDS: SERTRALINE 50 MG TAB PO SCH ×2 (09:13→09:15)
[2021-02-16] MEDS: PRENATAL VIT-IRON-FOLIC ACID 1 EACH CAP PO SCH (09:13)
[2021-02-16 09:27] VITALS: BP 118/68; PULSE 78; RESP 18; TEMP 97.5
[2021-02-16] MEDS: ACETAMINOPHEN TAB 325 MG TAB PO PRN (13:23)
== END 2021-02-16 16:25 | disposition home or self-care (01) | DRG 768 ==
LOC: 4FBP 06:00
PROVIDERS: ADMIT Obstetrics & Gynecology Obstetrics; ATTEND Obstetrics & Gynecology Obstetrics
PROC: 0UQG0ZZ Repair Vagina, Open Approach (ICD-10-PCS; principal; 2021-02-15)
PROC: 10E0XZZ Delivery of Products of Conception, External Approach (ICD-10-PCS; 2021-02-15)
PROC: 3E033VJ Introduction of Other Hormone into Peripheral Vein, Percutaneous Approach (ICD-10-PCS; 2021-02-15)
PROC: 3E0S3NZ Introduction of Analgesics, Hypnotics, Sedatives into Epidural Space, Percutaneous Approach (ICD-10-PCS; 2021-02-15)
DX: O71.4 Obstetric high vaginal laceration alone (principal); Z37.0 Single live birth; O72.1 Other immediate postpartum hemorrhage; F17.210 Nicotine dependence, cigarettes, uncomplicated; O99.334 Smoking (tobacco) complicating childbirth; Z3A.39 39 weeks gestation of pregnancy; Z79.82 Long term (current) use of aspirin; O43.113 Circumvallate placenta, third trimester; Z79.899 Other long term (current) drug therapy; Z88.0 Allergy status to penicillin
CPT/HCPCS: 85025; 86850; 86900; 86901

== ENCOUNTER 2021-02-23 19:08 | Emergency (ER) | payer BC ==
[2021-02-23 19:14] VITALS: TEMP 98
[2021-02-23] MEDS ORDERED: SODIUM CHLORIDE 0.9% 1,000 ML IV ONE (19:32)
[2021-02-23 19:58] LABS: Basophils % (A) 0 %; Eosinophils # (A) 0.1 k/uL (0-0.7); Eosinophils % (A) 1 %; HCT 38.5 % (34.0-46.0); HGB 12.6 gm/dL (11.4-16.0); Lymphocytes # (A) 1.5 k/uL (1.0-4.8); Lymphocytes % (A) 23 %; MCH 27.5 pg (25.0-35.0); MCHC 32.6 g/dL (31.0-37.0); MCV 84.2 fL (80.0-100.0); Mean Platelet Volume 7.2; Monocytes # (A) 0.3 k/uL (0-1.0); Monocytes % (A) 5 %; Neutrophils # (A) 4.3 k/uL (1.3-7.7); Neutrophils % (A) 66 %; Platelet Count 333 k/uL (150-450); RBC 4.58 m/uL (3.80-5.40); RDW 14.4 % (11.5-15.5); WBC 6.5 k/uL (3.8-10.6)
[2021-02-23 20:02] LABS: Appearance,Urine Cloudy (Clear); Bilirubin,Urine Negative (Negative); Blood,Urine Large (Negative); Color,Urine Yellow; Glucose,Urine (UA) Negative (Negative); Ketones,Urine Negative (Negative); Leukocyte Esterase,Urine Large (Negative); Mucus,Urine Rare /hpf; Nitrite,Urine Negative (Negative); PH, Urine 5.5 (5.0-8.0); Protein,Urine Trace (Negative); RBC,Urine 52 /hpf (0-5); Specific Gravity,Urine 1.021 (1.001-1.035); Squamous Epithelial Cell,Urine 17 /hpf (0-4); Urobilinogen,Urine <2.0 mg/dL (<2.0); WBC,Urine 49 /hpf (0-5)
[2021-02-23 20:03] LABS: INR 0.9 (<1.2); Partial Thromboplastin Time 24.8 sec (22.0-30.0); Prothrombin Time 9.8 sec (9.0-12.0)
[2021-02-23 20:06] LABS: ALT 31 U/L (4-34); AST 35 U/L (14-36); African American GFR (CKD) >90 (>60 ml/min/1.73 sqM); Albumin 3.6 g/dL (3.5-5.0); Alkaline Phosphatase 120 U/L (38-126); Anion Gap 11 mmol/L; Blood Urea Nitrogen 12 mg/dL (7-17); Calcium 8.9 mg/dL (8.4-10.2); Carbon Dioxide 23 mmol/L (22-30); Chloride 107 mmol/L (98-107); Glucose 103 mg/dL (74-99); Non-African American GFR(CKD) >90 (>60 ml/min/1.73 sqM); Potassium 4.1 mmol/L (3.5-5.1); Sodium 141 mmol/L (137-145); Total Bilirubin 0.6 mg/dL (0.2-1.3); Total Protein 6.4 g/dL (6.3-8.2)
[2021-02-23 20:21] LABS: HCG,Quantitative Serum 6.3 mIU/mL
--- NOTE | 2021-02-23 20:50 | US ---
EXAMINATION TYPE: US pelvic complete DATE OF EXAM: 02/23/2021 COMPARISON: US CLINICAL HISTORY: post hemorrhage. Post hemorrhage. . Pt delivered on 02/15/2021. TECHNIQUE: Transabdominal (TA). Transabdominal sonographic images of the pelvis were acquired. Date of LMP: Unknown. EXAM MEASUREMENTS: *Vaginal delivery on 02/15/2021. Uterus: 18.9 x 9.0 x 6.0 cm Endometrial Stripe: 1.17 cm 1. Uterus: Cervix appears to be anteverted, fundus appears to be retroflexed. 2. Endometrium: Possible hypoechoic fluid-appearing area within the endometrium measuring 2.2 x 1.8 x 0.6 cm. 3. Right Ovary: Not visualized. 4. Left Ovary: Not visualized. 5. Bilateral Adnexa: Appear to be wnl. 6. Posterior cul-de-sac: Appears to be wnl. IMPRESSION: Ovaries not seen. No adnexal mass. Mild thickening of the endometrium with variable echogenicity that could relate to retained products or blood clot or endometritis.
--- NOTE | 2021-02-23 21:11 | ED ---
Female Urogenital HPI - General Chief complaint: Vaginal Bleeding Stated complaint: hemorrhage Time Seen by Provider: 02/23/21 19:10 Source: patient Mode of arrival: ambulatory Limitations: no limitations - History of Present Illness Initial comments: 25-year-old female , status post vaginal delivery 8 days ago presents to the emergency department for vaginal bleeding. He states that she has had some lochia since delivery however it significantly got heavier today. She has gone through a pad an hour. She has also had very large blood clots. She states she had some bleeding immediately after delivery. Required Cytotec and Methergine. She denies any abdominal pain. No foul-smelling discharge. No fevers. She is breast-feeding. Denies lightheadedness. No vaginal trauma. No other alleviating, precipitating or modifying factors - Related Data Home Medications Medication Instructions Recorded Confirmed Pnv,Calcium 72/Iron/Folic Acid 1 tab PO DAILY 04/01/17 02/23/21 [ Plus Tablet] Sertraline [Zoloft] 50 mg PO DAILY 09/29/20 02/23/21 Allergies Allergy/AdvReac Type Severity Reaction Status Date / Time Penicillins Allergy Rash/Hives Verified 02/23/21 20:46 Review of Systems ROS Statement: Those systems with pertinent positive or pertinent negative responses have been documented in the HPI. ROS Other: All systems not noted in ROS Statement are negative. Past Medical History Past Medical History: No Reported History Additional Past Medical History / Comment(s): Subjective history: In 2009 she pickering d a normal vaginal delivery 8 lbs. 12 oz. This is her second . She's had good care with me since 9 weeks gestation. Blood type is O+, antibodies negative, rubella immune, RPR nonreactive, hepatitis B negative, HIV nonreactive, toxoplasmosis negative. GBS positive. History of Any Multi-Drug Resistant Organisms: None Reported Past Surgical History: No Surgical Hx Reported Past Anesthesia/Blood Transfusion Reactions: No Reported Reaction Past Psychological History: No Psychological Hx Reported, Depression Smoking Status: Current every day smoker Past Alcohol Use History: None Reported Past Drug Use History: None Reported - Past Family History Mother Family Medical History: No Reported History General Exam Limitations: no limitations General appearance: alert, in no apparent distress Head exam: Present: atraumatic, normocephalic, normal inspection Eye exam: Present: normal appearance, PERRL, EOMI. Absent: scleral icterus, conjunctival injection, periorbital swelling ENT exam: Present: normal exam, mucous membranes moist Neck exam: Present: normal inspection. Absent: tenderness, meningismus, lymphadenopathy Respiratory exam: Present: normal lung sounds bilaterally. Absent: respiratory distress, wheezes, rales, rhonchi, stridor Cardiovascular Exam: Present: regular rate, normal rhythm, normal heart sounds. Absent: systolic murmur, diastolic murmur, rubs, gallop, clicks GI/Abdominal exam: Present: soft, normal bowel sounds. Absent: distended, tenderness, guarding, rebound, rigid External exam: Present: normal external exam Speculum exam: Present: vaginal bleeding (pink tinged mucous - trace amount). Absent: vaginal discharge, cervical discharge, laceration Extremities exam: Present: normal inspection, full ROM, normal capillary refill. Absent: tenderness, pedal edema, joint swelling, calf tenderness Back exam: Present: normal inspection Neurological exam: Present: alert, oriented X3, CN II-XII intact Psychiatric exam: Present: normal affect, normal mood Skin exam: Present: warm, dry, intact, normal color. Absent: rash Course Vital Signs 02/23/21 02/23/21 19:08 21:17 Temperature 98.0 F Pulse Rate 98 72 Respiratory 18 16 Rate Blood Pressure 147/81 112/72 O2 Sat by Pulse 98 98 Oximetry Medical Decision Making - Medical Decision Making Upon arrival patient is placed into room 4. History and physical exam was performed. Immediate speculum exam is performed due to her reported significant bleeding. Bleeding is minimal on exam. IV is established. Laboratory says her conducted and the patient has a transabdominal ultrasound performed. Laboratory studies reveal hemoglobin of 12.6. Urinalysis does demonstrate blood. Is not clean catch. Patient is O+. Ultrasound does demonstrate some debris inside the uterus. Results are discussed with Dr. Valero. He alfonzo mmends Motrin for uterine constriction. Patient will call the office in the morning. Return to the emergency room for any new or worsening symptoms. patient was discharged in stable condition - Lab Data Result diagrams: 02/23/21 19:34 02/23/21 19:34 Lab Results 02/23/21 02/23/21 02/23/21 Range/Units 19:34 19:34 19:34 WBC 6.5 (3.8-10.6) k/uL RBC 4.58 (3.80-5.40) m/uL Hgb 12.6 (11.4-16.0) gm/dL Hct 38.5 (34.0-46.0) % MCV 84.2 (80.0-100.0) fL MCH 27.5 (25.0-35.0) pg MCHC 32.6 (31.0-37.0) g/dL RDW 14.4 (11.5-15.5) % Plt Count 333 (150-450) k/uL MPV 7.2 Neutrophils % 66 % Lymphocytes % 23 % Monocytes % 5 % Eosinophils % 1 % Basophils % 0 % Neutrophils # 4.3 (1.3-7.7) k/uL Lymphocytes # 1.5 (1.0-4.8) k/uL Monocytes # 0.3 (0-1.0) k/uL Eosinophils # 0.1 (0-0.7) k/uL Basophils # 0.0 (0-0.2) k/uL PT 9.8 (9.0-12.0) sec INR 0.9 (<1.2) APTT 24.8 (22.0-30.0) sec Sodium (137-145) mmol/L Potassium (3.5-5.1) mmol/L Chloride (98-107) mmol/L Carbon Dioxide (22-30) mmol/L Anion Gap mmol/L BUN (7-17) mg/dL Creatinine (0.52-1.04) mg/dL Est GFR (CKD-EPI)AfAm (>60 ml/min/1.73 sqM) Est GFR (CKD-EPI)NonAf (>60 ml/min/1.73 sqM) Glucose (74-99) mg/dL Calcium (8.4-10.2) mg/dL Total Bilirubin (0.2-1.3) mg/dL AST (14-36) U/L ALT (4-34) U/L Alkaline Phosphatase (38-126) U/L Total Protein (6.3-8.2) g/dL Albumin (3.5-5.0) g/dL HCG, Quant mIU/mL Urine Color Yellow Urine Appearance Cloudy H (Clear) Urine pH 5.5 (5.0-8.0) Ur Specific Dixon 1.021 (1.001-1.035) Urine Protein Trace H (Negative) Urine Glucose (UA) Negative (Negative) Urine Ketones Negative (Negative) Urine Blood Large H (Negative) Urine Nitrite Negative (Negative) Urine Bilirubin Negative (Negative) Urine Urobilinogen <2.0 (<2.0) mg/dL Ur Leukocyte Esterase Large H (Negative) Urine RBC 52 H (0-5) /hpf Urine WBC 49 H (0-5) /hpf Ur Squamous Epith Cells 17 H (0-4) /hpf Urine Mucus Rare H (None) /hpf Blood Type Blood Type Recheck Bld Type Recheck Status Antibody Screen Spec Expiration Date 02/23/21 02/23/21 Range/Units 19:34 19:34 WBC (3.8-10.6) k/uL RBC (3.80-5.40) m/uL Hgb (11.4-16.0) gm/dL Hct (34.0-46.0) % MCV (80.0-100.0) fL MCH (25.0-35.0) pg MCHC (31.0-37.0) g/dL RDW (11.5-15.5) % Plt Count (150-450) k/uL MPV Neutrophils % % Lymphocytes % % Monocytes % % Eosinophils % % Basophils % % Neutrophils # (1.3-7.7) k/uL Lymphocytes # (1.0-4.8) k/uL Monocytes # (0-1.0) k/uL Eosinophils # (0-0.7) k/uL Basophils # (0-0.2) k/uL PT (9.0-12.0) sec INR (<1.2) APTT (22.0-30.0) sec Sodium 141 (137-145) mmol/L Potassium 4.1 (3.5-5.1) mmol/L Chloride 107 (98-107) mmol/L Carbon Dioxide 23 (22-30) mmol/L Anion Gap 11 mmol/L BUN 12 (7-17) mg/dL Creatinine 0.65 (0.52-1.04) mg/dL Est GFR (CKD-EPI)AfAm >90 (>60 ml/min/1.73 sqM) Est GFR (CKD-EPI)NonAf >90 (>60 ml/min/1.73 sqM) Glucose 103 H (74-99) mg/dL Calcium 8.9 (8.4-10.2) mg/dL Total Bilirubin 0.6 (0.2-1.3) mg/dL AST 35 (14-36) U/L ALT 31 (4-34) U/L Alkaline Phosphatase 120 (38-126) U/L Total Protein 6.4 (6.3-8.2) g/dL Albumin 3.6 (3.5-5.0) g/dL HCG, Quant 6.3 mIU/mL Urine Color Urine Appearance (Clear) Urine pH (5.0-8.0) Ur Specific Dixon (1.001-1.035) Urine Protein (Negative) Urine Glucose (UA) (Negative) Urine Ketones (Negative) Urine Blood (Negative) Urine Nitrite (Negative) Urine Bilirubin (Negative) Urine Urobilinogen (<2.0) mg/dL Ur Leukocyte Esterase (Negative) Urine RBC (0-5) /hpf Urine WBC (0-5) /hpf Ur Squamous Epith Cells (0-4) /hpf Urine Mucus (None) /hpf Blood Type O Positive Blood Type Recheck O Pos Bld Type Recheck Status No Antibody Screen NEGATIVE Spec Expiration Date 02/26/20212333 Disposition Clinical Impression: Status post vaginal delivery, Vaginal bleeding Disposition: HOME SELF-CARE Condition: Stable Instructions (If sedation given, give patient instructions): Bleeding (ED) Additional Instructions: Please call the office tomorrow to make an appt with your OBGYN. Return to the ED for any new or worsening symptoms. Take Motrin 400 mg every 8 hours to decrease bleeding. Is patient prescribed a controlled substance at d/c from ED?: No Referrals: Pedro Queen DO [Primary Care Provider] - 1-2 days Jody Olivier DO [Doctor of Osteopathic Medicine] - 1-2 days Time of Disposition: 21:11
[2021-02-23 21:19] VITALS: BP 112/72; PULSE 72; RESP 16
== END 2021-02-23 21:18 | disposition home or self-care (01) ==
LOC: EC 19:08
DX: N93.9 Abnormal uterine and vaginal bleeding, unspecified (principal); F17.200 Nicotine dependence, unspecified, uncomplicated; Z88.0 Allergy status to penicillin
CPT/HCPCS: 36415; 76856; 80053; 81001; 84702; 85025; 85610; 85730; 86850; 86900; 86901; 87086; 96360; 99284

== ENCOUNTER → 2023-12-15 | Outpatient (CLI) | payer BC ==
--- NOTE | 2023-12-15 13:23 | USB ---
Reason for Exam: Clinical finding. Technique: Method: Whole Breast Handheld. Findings: The whole breast of both breasts, the axilla of both breasts and the retroareolar of both breasts were scanned. A complete US of all four quadrants of the breast and axilla, and retro-areolar region were reviewed. No solid or cystic masses are identified. No axillary adenopathy . Overall Assessment: Negative, BI-RAD 1 Management: Screening Mammogram of both breasts at age 39. Or earlier if there is a clinical indication. Further clinical management of patient's benign brownish nipple discharge. Suspicious nipple discharge that would warrant further evaluation includes clear/bloody spontaneous discharge localized to a single pore on the nipple. A clinical breast exam by your physician is recommended on an annual basis and results should be correlated with mammographic findings. This exam should not preclude additional follow-up of suspicious palpable abnormalities. Results were given to the patient verbally at the time of exam. Electronically signed and approved by: Luz Marina Hill M.D. Radiologist
== END | disposition home or self-care (01) ==
LOC: RADUSWWP 12:48
PROVIDERS: ATTEND Family Medicine
DX: N60.01 Solitary cyst of right breast (principal); N60.02 Solitary cyst of left breast